=== PATIENT | female | born 1975 | race Caucasian/White ===

== ENCOUNTER 2018-07-10 13:12 | Observation (INO) ==
[2018-07-10] MEDS ORDERED: HYDROmorphone HCL 1 MG/ML DISP.SYRIN IV ONE (15:10)
[2018-07-10] MEDS ORDERED: AZITHROMYCIN 250 MG TABLET PO ONE (16:12)
[2018-07-10] MEDS: RINGER'S SOLUTION,LACTATED 1,000 ML IV PRN (16:23)
[2018-07-10] MEDS: CEFOXITIN SODIUM 2 GM in DEXTROSE 5 % IN WATER 100 ML IV SCH ×4 (16:23→20:49)
[2018-07-10] MEDS: oxyCODONE HCL/ACETAMINOPHEN 1 TAB TABLET PO PRN ×2 (16:29→20:41)
--- NOTE | 2018-07-10 16:47 | PN ---
Subjective - Date and Time Seen Date: 07/10/18 Subjective Narrative: 42 yo, CF, G 5 P 1 4 0 5, came in to clinic today complaining of severe pelvic and abdominal pain since after intercourse yesterday. she is 10 weeks and 4 days after a total laparoscopic hysterectomy, bilateral salpingectomy, and lysis of adhesions done on 04/27/18. She states she had intercourse early tuesday morning. She said her and her both felt something "pop" at the same time. She states it feels like something "ripped open in lower abd across incision." She also has pain right upper abd. She states there was light bleeding for 4-5 hours. She denies fever. She took some ibuprofen and xanax and tried to sleep but she cant take the pain anymore. She rates it 100/10. On exam, there was small yellow fluid in the vaginal cuff area, yellow exudate over vaginal cuff and severe tenderness over vaginal cuff. There was also lower abdominal tenderness and RUQ tenderness with evidence of localized peritonitis, suggesting at least severe PID and vaginal cuff cellulitis and possible cuff dehiscence. CT of the abdomen and pelvis today showed thickening of the vaginal cuff/wall with fluid, and tiny foci of gas. There is some stranding of the fat adjacent to the vaginal cuff. There is no free fluid or hemotoma. Correlate with cuff infection or injury. So will not need to proceed with diagnostic laparoscopy. will admit her for severe PID and vaginal cuff cellulitis for IV antibiotics and pain control. Please use my clinic note for admission H and P. PMH: Hypothyroidism Genital herpes: never had an outbreak. smoker: 1 ppd PSH: TLH, BS, lysis of adhesions 04/27/18 (for menorrhagia, chronic pelvic pain) C/S x 5 (92 breech, 94 breech, 95 repeat, 2000 breech, 2006 breech) BTL with the 4th c/s, failed. BTL with last 5th C/S in 2006. hysteroscopy, D&C 2012 Objective - Vitals Vitals: Last Vital Signs Temp 37.3 C 07/10/18 15:40 Pulse 73 07/10/18 15:40 Resp 20 07/10/18 15:40 BP 110/58 07/10/18 15:40 Pulse Ox 100 07/10/18 15:40 Assessment/Plan - Problems/Diagnosis (1) Acute PID (pelvic inflammatory disease) Problem: Acute (2) Localized peritonitis Problem: Acute (3) Acute abdominal pain Problem: Acute (4) Acute pelvic pain Problem: Acute (5) Vaginal cuff cellulitis Problem: Acute (6) Status post hysterectomy Problem: Acute
[2018-07-10] MEDS: metroNIDAZOLE/SODIUM CHLORIDE 500 MG/100 ML BAG IV SCH ×2 (17:04→23:28)
[2018-07-11] MEDS: RINGER'S SOLUTION,LACTATED 1,000 ML IV PRN (03:38)
[2018-07-11] MEDS: CEFOXITIN SODIUM 2 GM in DEXTROSE 5 % IN WATER 100 ML IV SCH ×4 (03:39→09:21)
[2018-07-11 05:34] LABS: Hematocrit 32.8 % (37.0-47.0); Hemoglobin 10.7 gm/dL (12.5-16.0); Mean Cell Volume 86.3 fl (78-100); Mean Corpuscular Hemoglobin 28.2 pg (27-31); Mean Corpuscular Hgb Conc 32.6 g/dl (32-36); Mean Platelet Volume 8.5 fl (8-12.5); Neutrophil # 6.4 K/mm3 (1.3-6.0); Neutrophil % 71.8 % (42-75.0); Platelet Count 295 K/mm3 (150-450); Red Cell Distribution Width 15.8 % (11.5-14.0); White Blood Count 8.9 K/mm3 (4.0-10.5)
[2018-07-11 05:50] LABS: Albumin * 2.9 gm/dl (3.4-5.0); Anion Gap 11.1 mmol/L (6.8-13.8); BUN/Creatinine Ratio 5.7 (9.0-21.6); Bilirubin, Total 0.5 mg/dL (0.0-1.1); Ca. Corrected For Albumin 8.4 mg/dL (8.4-10.2); Calcium * 7.8 mg/dL (7.9-10.9); Carbon Dioxide 25.3 mmol/L (24-32.6); Potassium 3.4 mmol/L (3.4-4.6)
[2018-07-11] MEDS ORDERED: metroNIDAZOLE/SODIUM CHLORIDE 500 MG/100 ML BAG IV PRN (06:00)
[2018-07-11] MEDS ORDERED: CEFOXITIN SODIUM 2 GM in DEXTROSE 5 % IN WATER 100 ML IV PRN ×2 (06:00)
[2018-07-11] MEDS ORDERED: RINGER'S SOLUTION,LACTATED 1,000 ML IV PRN (06:00)
[2018-07-11] MEDS: oxyCODONE HCL/ACETAMINOPHEN 1 TAB TABLET PO PRN (06:31)
[2018-07-11] MEDS: metroNIDAZOLE/SODIUM CHLORIDE 500 MG/100 ML BAG IV SCH (07:39)
--- NOTE | 2018-07-11 10:20 | DS ---
(1) Acute PID (pelvic inflammatory disease) Problem: Acute (2) Localized peritonitis Problem: Acute (3) Acute abdominal pain Problem: Acute (4) Acute pelvic pain Problem: Acute (5) Vaginal cuff cellulitis Problem: Acute (6) Status post hysterectomy Problem: Acute Description of Stay: Patient was admitted for acute abdominal and pelvic pain, vaginal bleeding and hearing a "pop" after intercourse. She was about 10 weeks 4 days from a total laparoscopic hysterectomy. Initially there was concerns about possible vaginal cuff dehiscence. CT of the abdomen and pelvis showed evidence of possible cuff infection, but no free fluid or hematoma. Clinical exam showed the cuff was intact, but there are severe tenderness of the vaginal cuff and lower abdomen, RUQ with localized peritonitis. So she was admitted for severe PID and acute cuff cellulitis and treated with IV antibiotics (cefoxitin and flagyl) and oral antibiotic Azithromycin. She received one dose of iv dilaudid and two doses of percocet overnight. Her pain is improved, rated 5/10. She is doing much better this morning. She is ambulating and tolerating diet well. So I will discharge her home on oral antibiotics with follow up in clinic in one week. Procedures Performed: none Results and Findings: Lab Pending Results 07/11/18 05:27: WBC 8.9, RBC 3.80 L, Hgb 10.7 L, Hct 32.8 L, MCV 86.3, MCH 28.2 , MCHC 32.6, RDW 15.8 H, Plt Count 295, MPV 8.5, Immature Gran % (Auto) 0.30, Immature Gran # (Auto) 0.03, Neutrophils % 71.8, Lymphocytes % 20.2, Monocytes % 5.7, Eosinophils % 1.6, Basophils % 0.4, Nucleated RBC % 0.0, Neutrophils # 6.4 H, Lymphocytes # 1.80, Monocytes # 0.5, Eosinophils # 0.1, Absolute Basophils 0.0 07/11/18 05:27: Sodium 136, Plasma Sodium 136, Potassium 3.4, Chloride 103, Carbon Dioxide 25.3, Anion Gap 11.1, BUN 6 D, Creatinine 1.06, Est GFR (Non-Af Amer) 60, BUN/Creatinine Ratio 5.7 L, Random Glucose 89, Calcium 7.8 L, Calcium Adj for Albumin 8.4, Total Bilirubin 0.5, AST 13, ALT 22, Alkaline Phosphatase 64, Total Protein 6.0 L, Albumin 2.9 L Discharge Location: Home Disposition: Home self-care Condition: Stable Discharge Activity: Activity as tolerated Discharge Diet: General/regular food Complete Home Medications List: Complete Home Medication List: Levothyroxine Sodium [Synthroid] 225 tab PO DAILY 11/29/12 traZODone HCL [Desyrel] 300 mg PO HS 06/19/15 ALPRAZolam [Xanax] 1 mg PO QID PRN 04/18/18 Albuterol Sulfate [Proair Respiclick] 90 mcg IH Q4H PRN 04/27/18 Budesonide/Formoterol Fumarate [Symbicort 80-4.5 Mcg Inhaler] 10.2 gm IH BID 10/03 Ibuprofen [Motrin] 800 mg PO Q8H PRN #30 tab 04/27/18 lamotrigine 150 mg tablet 150 mg PO HS 05/01/18 Azithromycin 500 mg PO DAILY #14 tab 07/11/18 Estradiol [Estrace Vaginal] 1 appl VG 3XW #1 tube 07/11/18 Ibuprofen [Motrin] 800 mg PO Q8H PRN #30 tab 07/11/18 metroNIDAZOLE [Flagyl] 500 mg PO Q12H #14 tab 07/11/18 oxyCODONE HCL/ACETAMINOPHEN [Percocet 5 MG/325 MG] 1 tab PO Q6H PRN #15 tablet 07/11/18
[2018-07-11 11:02] VITALS: BP 141/68
== END 2018-07-11 11:20 | disposition home or self-care (01) ==
LOC: RAD 13:12 → MS 13:12
PROVIDERS: ADMIT Obstetrics & Gynecology; ATTEND Obstetrics & Gynecology
DX: Z72.0 Tobacco use; N73.0 Acute parametritis and pelvic cellulitis; A60.00 Herpesviral infection of urogenital system, unspecified; Z90.710 Acquired absence of both cervix and uterus; R10.2 Pelvic and perineal pain; E03.9 Hypothyroidism, unspecified; K65.0 Generalized (acute) peritonitis; Z68.22 Body mass index [BMI] 22.0-22.9, adult; L03.818 Cellulitis of other sites
CPT/HCPCS: 36415; 74177; 80053; 85025; 87491; 87591; 96361; 96365; 96366; 96375; G0378; G0379